=== PATIENT | female | born 1995 | race Caucasian/White ===

== ENCOUNTER 2018-12-25 15:39 | Emergency (ER) | payer BC ==
[2018-12-25 15:44] VITALS: BP 119/69; PULSE 77; TEMP 98.3; BMI 29.9
--- NOTE | 2018-12-25 15:45 | PDOC ---
Rapid Medical Evaluation Chief Complaint: Vaginal Bleeding Time Seen by Provider: 12/25/18 15:42 Medical Evaluation: 12/25/18 15:42 I have performed a brief in-person evaluation of this patient. The patient presents with a chief complaint of: vag bleed Pertinent physical exam findings: Cramps. LmP; 12/06 but returned 3 days ago. I have ordered the following: UA/ Ucg The patient will proceed to the ED for further evaluation. 12/25/18 15:42 Discharge Disposition - Diagnosis Vaginal bleeding between periods - Referrals - Patient Instructions - Post Discharge Activity
--- NOTE | 2018-12-25 16:03 | PDOC ---
History of Present Illness - General Chief Complaint: Vaginal Bleeding Stated Complaint: MISCARRIAGE Time Seen by Provider: 12/25/18 15:42 History Source: Patient (reports seeing menses twice last month, on OCP but inconsistent usage, concern for miscarriage.) - History of Present Illness Quality: reports: mild, cramping Past History - Past Medical History Allergies/Adverse Reactions: Allergies Allergy/AdvReac Type Severity Reaction Status Date / Time No Known Allergies Allergy Verified 12/25/18 15:44 Home Medications: Ambulatory Orders NK [No Known Home Medication] 12/25/18 Anemia: Yes COPD: No - Suicide/Smoking/Psychosocial Hx Smoking History: Current some day smoker Number of Cigarettes Smoked Daily: 0 Information on smoking cessation initiated: No Hx Alcohol Use: No Drug/Substance Use Hx: No Abd/GI Specific PMHX - Complaint Specific PMHX Colitis: No Review of Systems - Review of Systems Is the patient limited Citizen Of [place] proficient: No Constitutional: No: Chills, Fever Cardiac (ROS): No: Chest Pain, Lightheadedness, Palpitations ABD/GI: No: Abdominal Distended, Diarrhea, Nausea, Vomiting, Abdominal cramping : No: Burning, Dysuria, Frequency, Flank Pain, Urgency, Testicular Pain Musculoskeletal: No: Back Pain Neurological: No: Dizziness Hematologic/Lymphatic: No: Easy Bleeding *Physical Exam - Vital Signs Last Vital Signs Temp Pulse Resp BP Pulse Ox 98.3 F 77 16 119/69 99 12/25/18 15:41 12/25/18 15:41 12/25/18 15:41 12/25/18 15:41 12/25/18 15:41 - Physical Exam General Appearance: Yes: Nourished Respiratory/Chest: positive: Lungs Clear, Normal Breath Sounds Cardiovascular: positive: Regular Rhythm, Regular Rate, S1, S2 Female Pelvic Exam: positive: uterus (no enlargement), other (+ blood in vault, no clot or active pooling, no CMT/Adenex tenderness. ) Gastrointestinal/Abdominal: positive: Normal Bowel Sounds, Soft Musculoskeletal: positive: Normal Inspection Extremity: positive: Normal Capillary Refill, Normal Inspection Integumentary: positive: Normal Color Neurologic: positive: lump room supervisor II-XII NML intact, Fully Oriented, Alert, Normal Mood/ Affect, Normal Response, Motor Strength 5/5 Medical Decision Making - Medical Decision Making 12/25/18 16:07 23y/o F presents with irregular menstruation P was 6/12 and lasted for 5 days then it returned on 12/22/18. Pt denies h/o irregular menses, abd pain,. Patient is currently sexually active and on OCP. She reports inconsistent use of OCPs, she has missed a few pills and had to double up at times, recently done 3wks ago. She denies any history of fibroids no dizziness she is concerned that she is . Examination consist of blood in the vaginal fold is no active pulling or clots vital signs is stable UA and UCG ordered and pending discussed with patient at length day importance of control UCG neg vss menstrual calendar advised pt advised to be consistent with OCP frequency and use return red flags discussed otherwise f/u with [facility] 12/25/18 17:01 *DC/Admit/Observation/Transfer Diagnosis at time of Disposition: Vaginal bleeding between periods - Discharge Dispostion Disposition: HOME Condition at time of disposition: Stable Decision to Admit order: No - Referrals Referrals: Velasquez Kelly MD [Non Staff, Medical] - Amber Garzon MD [Non Staff, Medical] - Yue Francois MW [Certified Nurse [employer] Supervisor] - - Patient Instructions Printed Discharge Instructions: DI for Vaginal Bleeding Additional Instructions: Your test was negative today please be consistent with your control, take daily and avoid skipping pills follow up with your [facility] doctor if bleeding persist more than 7 days keep a menstrual calendar return to the ER if worsening symptom occurs, ie using 7 or more pads a day, dizziness, chest pain - Post Discharge Activity
[2018-12-25 16:35] LABS: HCG,QUALITATIVE URINE Negative
[2018-12-25 16:38] LABS: HYALINE CASTS 1 /lpf (0-8); URINE APPEARANCE CLEAR; URINE BACTERIA 5.1 /hpf (NEGATIVE); URINE BILIRUBIN NEGATIVE (NEGATIVE); URINE COLOR YELLOW; URINE GLUCOSE (UA) NEGATIVE (NEGATIVE); URINE KETONE NEGATIVE (NEGATIVE); URINE LEUK ESTERASE NEGATIVE (NEGATIVE); URINE NITRITE NEGATIVE (NEGATIVE); URINE PROTEIN NEGATIVE (NEGATIVE); URINE RBC 573 /hpf (0-4); URINE UROBILINOGEN 0.2 mg/dL (0.2-1.0); URINE WBC 2 /hpf (0-5)
== END 2018-12-25 16:49 | disposition home or self-care (01) ==
LOC: JERFT 15:39
DX: N92.1 Excessive and frequent menstruation with irregular cycle (principal)
CPT/HCPCS: 81003; 84703; 99281-25